=== PATIENT | female | born 1970 | race Caucasian/White ===

== ENCOUNTER 2023-06-10 11:23 | Inpatient (IN) | payer SELFPAY ==
[~2023-06-10] VITALS: Ht 157.5 cm; Wt 81.2 kg
[2023-06-10] MEDS: ONDANSETRON HCL 4MG/2ML INJ IV NR (12:47)
[2023-06-10] MEDS: CEFTRIAXONE 1GM/50ML 50 ML IV NR (13:00)
[2023-06-10] MEDS: SODIUM CHLORIDE 0.9% 1000ML BAG (SEPSIS BOLUS) IV ONE (13:15)
[2023-06-10 14:03] LABS: PROTHROMBIN TIME 11.2 sec (9.6-11.0)
[2023-06-10 14:13] LABS: HEMOGLOBIN. 11.4 g/dL (12.0-16.0); MEAN CORPUSCULAR HEMOGLOBIN 29.9 pg (28.0-32.0); MEAN CORPUSCULAR HGB CONC 33.6 g/dL (31.0-37.0); MEAN CORPUSCULAR VOLUME 88.8 fL (81.0-99.0); MEAN PLATELET VOLUME 9.9 fl (7.4-10.4); PLATELET 139 x1000/uL (130-400); RED BLOOD CELL COUNT 3.83 mill/uL (4.2-5.4); RED CELL DISTRIBUTION WIDTH 12.7 % (11.6-14.6); WHITE BLOOD COUNT 17.7 x1000/uL (4.5-11.0)
[2023-06-10 14:14] LABS: ALANINE AMINOTRANSFERASE < 7 IU/L (10-49); ALBUMIN 3.4 g/dL (3.2-4.8); ASPARTATE AMINOTRANSFERASE 15 IU/L (<34); BILIRUBIN TOTAL 0.4 mg/dL (0.1-1.0); CARBON DIOXIDE 24 mEq/L (21-32); CHLORIDE 98 mEq/L (98-107); CREATININE 1.3 mg/dL (0.6-1.0); POTASSIUM 4.2 mEq/L (3.5-5.1); PROTEIN TOTAL 6.7 g/dL (6.0-8.3); SODIUM 129 mEq/L (136-145); TROPONIN I HIGH SENSITIVITY 7 ng/L (3.0-34); UREA NITROGEN BLOOD 29 mg/dL (9-23)
[2023-06-10 14:17] LABS: DIFFERENTIAL COMMENT 1
[2023-06-10 15:01] LABS: GLUCOSE 435 mg/dL (70-105)
[2023-06-10] MEDS: AZITHROMYCIN 500MG/250ML 250 ML IV SCH (16:45)
[2023-06-10 18:45] LABS: TROPONIN I HIGH SENSITIVITY 8 ng/L (3.0-34)
[2023-06-10 19:44] LABS: PLATELET ESTIMATE NORMAL
[2023-06-10 23:05] VITALS: BP 111/59; PULSE 113; RESP 21; TEMP 98
[2023-06-11] MEDS ORDERED: ZOLPIDEM TARTRATE 5MG TABLET PO PRN (02:45)
[2023-06-11] MEDS ORDERED: DIPHENHYDRAMINE 50MG/ML VIAL IV PRN (02:45)
[2023-06-11] MEDS ORDERED: ACETAMINOPHEN 325MG TABLET PO PRN (02:45)
[2023-06-11] MEDS: SODIUM CHLORIDE 0.9% 1,000 ML IV SCH (05:59)
[2023-06-11] MEDS: INSULIN LISPRO 100 UNITS/ML SUBCUT SCH (06:53)
[2023-06-11] MEDS: BLOOD SUGAR DIAGNOSTIC STRIP TEST SCH (06:54)
[2023-06-11 08:00] VITALS: BP 104/58; PULSE 112; RESP 18; TEMP 97.7
[2023-06-11] MEDS: CEFTRIAXONE 1GM/50ML 50 ML IV SCH (08:35)
[2023-06-11] MEDS: CIPROFLOXACIN 0.3% OPHTH SOLN 2.5ML BOTHEYE SCH (08:35)
[2023-06-11] MEDS: INSULIN GLARGINE 100 UNITS/ML SUBCUT SCH (09:15)
[2023-06-11 12:00] VITALS: BP 97/45; PULSE 110; RESP 18; TEMP 97.9
[2023-06-11 16:00] VITALS: BP 116/56; PULSE 110; RESP 18; TEMP 98.1
[2023-06-11 17:57] LABS: CLARITY URINE CLOUDY (CLEAR); COLOR URINE DARK YELLOW (YELLOW); GLUCOSE URINE 3+ (NEGATIVE); KETONES URINE NEGATIVE (NEGATIVE); LEUKOCYTE ESTERASE URINE NEGATIVE (NEGATIVE); NITRITE URINE NEGATIVE (NEGATIVE); OCCULT BLOOD URINE TRACE (NEGATIVE); PROTEIN URINE 3+ (NEGATIVE); SPECIFIC GRAVITY URINE 1.021 (1.005-1.030); UROBILINOGEN URINE 0.2 E.U./dL (0.2-1.0)
[2023-06-11 18:20] LABS: RBC URINE 0-2 /hpf (0-2); SQUAMOUS EPITHELIAL CELL URINE NONE SEEN /lpf (RARE/1+); WBC URINE 0-2 /hpf (0-2)
[2023-06-11 18:21] LABS: BACTERIA URINE 3+; YEAST URINE NONE SEEN
[2023-06-11 20:00] VITALS: BP 106/61; PULSE 104; RESP 22; TEMP 102.7
[2023-06-11] MEDS: VANCOMYCIN 1.5GM/250ML 250 ML IV SCH (20:45)
[2023-06-11] MEDS: ONDANSETRON HCL 4MG/2ML INJ IV PRN (20:45)
[2023-06-11] MEDS: METHYLPREDNISOLONE SOD SUCC 40MG/ML (ACT-O-VIAL) IV NR (20:45)
[2023-06-11] MEDS: PREDNISOLONE ACETATE 1% OPHTH DROPS 5ML LEFTEYE SCH (23:05)
[2023-06-11] MEDS: ACETAMINOPHEN 325MG TABLET PO PRN (23:06)
[2023-06-12] VITALS: BP 100/46; PULSE 99; RESP 18; TEMP 100
[2023-06-12 04:00] VITALS: BP 112/57; PULSE 84; RESP 20; TEMP 97.5
[2023-06-12 07:26] LABS: HEMATOCRIT. 30.9 % (36.0-48.0); HEMOGLOBIN. 10.3 g/dL (12.0-16.0); MEAN CORPUSCULAR HEMOGLOBIN 30.5 pg (28.0-32.0); MEAN CORPUSCULAR HGB CONC 33.3 g/dL (31.0-37.0); MEAN CORPUSCULAR VOLUME 91.7 fL (81.0-99.0); MEAN PLATELET VOLUME 10.6 fl (7.4-10.4); PLATELET 124 x1000/uL (130-400); RED BLOOD CELL COUNT 3.37 mill/uL (4.2-5.4); RED CELL DISTRIBUTION WIDTH 13.2 % (11.6-14.6); WHITE BLOOD COUNT 17.9 x1000/uL (4.5-11.0)
[2023-06-12 07:43] LABS: DIFFERENTIAL COMMENT 1
[2023-06-12 07:49] LABS: CALCIUM 7.2 mg/dL (8.7-10.4); CARBON DIOXIDE 18 mEq/L (21-32); CHLORIDE 105 mEq/L (98-107); CREATININE 1.6 mg/dL (0.6-1.0); GLUCOSE 298 mg/dL (70-105); PHOSPHORUS 3.6 mg/dL (2.5-4.9); POTASSIUM 4.1 mEq/L (3.5-5.1); SODIUM 132 mEq/L (136-145); UREA NITROGEN BLOOD 41 mg/dL (9-23)
[2023-06-12 08:00] VITALS: BP 130/68; PULSE 91; RESP 20; TEMP 99
[2023-06-12] MEDS ORDERED: VANCOMYCIN 1G PREMIX 200 ML IV SCH (08:00)
[2023-06-12 12:00] VITALS: BP 118/71; PULSE 83; RESP 18; TEMP 97.8
[2023-06-12 12:46] LABS: PLATELET ESTIMATE NORMAL
[2023-06-12 16:00] VITALS: BP 135/78; PULSE 68; RESP 22; TEMP 97.6
[2023-06-12 20:00] VITALS: BP 134/76; PULSE 81; RESP 18; TEMP 98.6
[2023-06-12] MEDS: VANCOMYCIN 750MG PREMIX 150 ML IV SCH (21:34)
[2023-06-12] MEDS: AZITHROMYCIN 500 MG TABLET PO NR (21:35)
[2023-06-12] MEDS: DEXAMETHASONE 4MG/ML 1ML VIAL IV SCH (21:35)
[2023-06-13] VITALS: BP 132/81; PULSE 77; RESP 20; TEMP 98.6
[2023-06-13 04:00] VITALS: BP 147/74; PULSE 75; RESP 18; TEMP 98.6
[2023-06-13 06:27] LABS: CALCIUM 7.3 mg/dL (8.7-10.4); CREATININE 1.3 mg/dL (0.6-1.0)
[2023-06-13 08:00] VITALS: BP 144/85; PULSE 78; RESP 18; TEMP 98.2
[2023-06-13] MEDS: CEFTRIAXONE 1,000 MG in DEXTROSE 5% WATER 50 ML IV SCH (08:25)
[2023-06-13] MEDS: AZITHROMYCIN 500 MG TABLET PO SCH (08:26)
[2023-06-13] MEDS: INSULIN GLARGINE 100 UNITS/ML SUBCUT SCH ×2 (10:49→21:25)
[2023-06-13 12:00] VITALS: BP 149/87; PULSE 74; RESP 18; TEMP 97.3
[2023-06-13] MEDS: NEO/POLYMYX B SULF/DEXAMETH OPHTH OINT 3.5GM LEFTEYE SCH (18:54)
[2023-06-14 06:29] LABS: CALCIUM 7.2 mg/dL (8.7-10.4); POTASSIUM 3.9 mEq/L (3.5-5.1)
[2023-06-14 08:00] VITALS: BP 149/85; PULSE 74; RESP 16; TEMP 96.4
[2023-06-14] MEDS: CEFTRIAXONE 1GM/50ML 50 ML IV SCH (09:33)
[2023-06-14 12:00] VITALS: BP 134/71; PULSE 84; RESP 18; TEMP 96.4
[2023-06-14] MEDS: LOPERAMIDE HCL 2MG CAPSULE PO PRN (14:23)
[2023-06-14 16:00] VITALS: BP 167/87; PULSE 76; RESP 16; TEMP 96.2
[2023-06-14] MEDS: CLONIDINE 0.1MG TABLET PO PRN (17:51)
[2023-06-14] MEDS: VANCOMYCIN 1G PREMIX 200 ML IV SCH (17:51)
[2023-06-14 20:00] VITALS: BP 115/61; PULSE 60; RESP 18; TEMP 97.3
[2023-06-15] VITALS: BP 118/61; PULSE 59; RESP 17; TEMP 97.3
[2023-06-15 04:00] VITALS: BP 139/79; PULSE 65; RESP 17; TEMP 97.3
[2023-06-15 07:22] LABS: HEMOGLOBIN. 11.3 g/dL (12.0-16.0); MEAN CORPUSCULAR HGB CONC 32.2 g/dL (31.0-37.0); MEAN CORPUSCULAR VOLUME 93.3 fL (81.0-99.0); MEAN PLATELET VOLUME 9.3 fl (7.4-10.4); PLATELET 223 x1000/uL (130-400); RED BLOOD CELL COUNT 3.75 mill/uL (4.2-5.4); RED CELL DISTRIBUTION WIDTH 13.7 % (11.6-14.6)
[2023-06-15 07:25] LABS: DIFFERENTIAL COMMENT 1
[2023-06-15 07:53] LABS: CALCIUM 7.2 mg/dL (8.7-10.4); CARBON DIOXIDE 20 mEq/L (21-32); CHLORIDE 113 mEq/L (98-107); CREATININE 0.9 mg/dL (0.6-1.0); GLUCOSE 147 mg/dL (70-105); PHOSPHORUS 2.4 mg/dL (2.5-4.9); POTASSIUM 3.9 mEq/L (3.5-5.1); SODIUM 141 mEq/L (136-145); UREA NITROGEN BLOOD 29 mg/dL (9-23)
[2023-06-15 08:00] VITALS: BP 164/88; PULSE 64; RESP 18; TEMP 97.7
[2023-06-15] MEDS: FAMOTIDINE 20MG TABLET PO SCH (08:34)
[2023-06-15 12:00] VITALS: BP 152/84; PULSE 86; RESP 18; TEMP 97.7
[2023-06-15 16:00] VITALS: BP 164/96; PULSE 82; RESP 18; TEMP 97
[2023-06-15 17:40] LABS: NUCLEATED RED BLOOD CELLS 7 /100 WBC; PLATELET ESTIMATE NORMAL
[2023-06-15 20:00] VITALS: BP 148/84; PULSE 69; RESP 18; TEMP 97.7
[2023-06-15] MEDS: SODIUM CHLORIDE 0.9% 1,000 ML IV SCH (21:53)
[2023-06-16] VITALS: BP 130/71; PULSE 78; RESP 18; TEMP 98
[2023-06-16 04:00] VITALS: BP 121/59; PULSE 72; RESP 18; TEMP 97.6
[2023-06-16] MEDS: DEXTROSE 50% WATER 50ML SYRINGE IV PRN (06:18)
[2023-06-16 06:51] LABS: HEMATOCRIT. 35.8 % (36.0-48.0); HEMOGLOBIN. 11.8 g/dL (12.0-16.0); MEAN CORPUSCULAR HEMOGLOBIN 29.8 pg (28.0-32.0); MEAN CORPUSCULAR HGB CONC 32.8 g/dL (31.0-37.0); MEAN CORPUSCULAR VOLUME 90.8 fL (81.0-99.0); MEAN PLATELET VOLUME 8.7 fl (7.4-10.4); PLATELET 283 x1000/uL (130-400); RED BLOOD CELL COUNT 3.94 mill/uL (4.2-5.4); RED CELL DISTRIBUTION WIDTH 13.9 % (11.6-14.6)
[2023-06-16 06:56] LABS: DIFFERENTIAL COMMENT 1
[2023-06-16 07:13] LABS: CALCIUM 7.4 mg/dL (8.7-10.4); CARBON DIOXIDE 21 mEq/L (21-32); CHLORIDE 115 mEq/L (98-107); CREATININE 0.8 mg/dL (0.6-1.0); SODIUM 144 mEq/L (136-145); UREA NITROGEN BLOOD 23 mg/dL (9-23)
[2023-06-16 08:00] VITALS: BP 170/89; PULSE 77; RESP 18; TEMP 96.4
[2023-06-16 08:18] LABS: GLUCOSE 46 mg/dL (70-105)
[2023-06-16 08:19] LABS: POTASSIUM 2.8 mEq/L (3.5-5.1)
[2023-06-16] MEDS: INSULIN GLARGINE 100 UNITS/ML SUBCUT SCH (10:00)
[2023-06-16 14:59] VITALS: BP 130/76; PULSE 84; TEMP 98; O2SAT 98
[2023-06-16 15:30] LABS: NUCLEATED RED BLOOD CELLS 1 /100 WBC; PLATELET ESTIMATE NORMAL
[2023-06-16] MEDS: POTASSIUM CHLORIDE 20MEQ TABLET SR PO NR (16:02)
== END 2023-06-16 16:15 | disposition home or self-care (01) | DRG 720 ==
LOC: ER 11:23 → 8WST 17:50 → EDBEDREQ 17:54
PROVIDERS: ADMIT Internal Medicine; ATTEND Internal Medicine
DX: A41.9 Sepsis, unspecified organism (principal); N17.9 Acute kidney failure, unspecified; J18.9 Pneumonia, unspecified organism; K76.0 Fatty (change of) liver, not elsewhere classified; R16.0 Hepatomegaly, not elsewhere classified; E11.9 Type 2 diabetes mellitus without complications; L03.213 Periorbital cellulitis; Z20.822 Contact with and (suspected) exposure to COVID-19; A09 Infectious gastroenteritis and colitis, unspecified; K44.9 Diaphragmatic hernia without obstruction or gangrene; I10 Essential (primary) hypertension; Z79.4 Long term (current) use of insulin; Z85.43 Personal history of malignant neoplasm of ovary; Z86.14 Personal history of Methicillin resistant Staphylococcus aureus infection
CPT/HCPCS: 36415; 70486; 71045; 74176; 80048; 80053; 80202; 81003; 82962; 83036; 83605; 83735; 84100; 84145; 84484; 85025; 87045; 87426; 87449; 87493; 87804; 93005; 99291; C1893; J0456; J0696; J1100; J1815; J2405; J2920; J3370; J7030; J7060